=== PATIENT | female | born 1980 | race Two or more races ===

== ENCOUNTER 2018-03-18 22:27 | Emergency (ER) | payer MEDICAID ==
[~2018-03-18] VITALS: Ht 167.6 cm; Wt 66.8 kg
[~2018-03-18 22:27] MED LIST: DOCU-28 PO; PHEN-873 PO
[2018-03-18] MEDS ORDERED: morphine 4 MG/ML inj SYRINge IV ONE (22:50)
[2018-03-18] MEDS ORDERED: ondansetron/PF 4mg/2ml inj IV ONE (22:50)
[2018-03-18 23:04] LABS: BASOPHILS # (AUTO) 0.1 X10'3 (0-0.2); BASOPHILS % (AUTO) 0.8 % (0-1); EOSINOPHILS # (AUTO) 0.2 X10'3 (0-0.9); EOSINOPHILS % (AUTO) 1.9 % (0-6); HEMOGLOBIN 13.2 g/dl (12.0-16.0); LYMPHOCYTES # (AUTO) 5.4 X10'3 (1.1-4.8); LYMPHOCYTES % (AUTO) 44.6 % (21-51); MEAN CORPUSCULAR HEMOGLOBIN 26.7 PG (27.0-31.0); MEAN CORPUSCULAR HGB CONC 33.8 % (33.0-36.5); MEAN CORPUSCULAR VOLUME 78.8 FL (78-98); MEAN PLATELET VOLUME 7.8 FL (7.4-10.4); MONOCYTES # (AUTO) 1.3 X10'3 (0-0.9); NEUTROPHILS % (AUTO) 41.7 % (42-75); PLATELET COUNT 265 X10'3 (140-440); RED BLOOD COUNT 4.95 X10'6 (4.20-5.60); RED CELL DISTRIBUTION WIDTH 13.1 % (11.5-14.5); WHITE BLOOD COUNT 12.1 X10'3 (4.5-11.0)
[2018-03-18 23:06] LABS: INR 1.1 INR; PARTIAL THROMBOPLASTIN TIME 27 SECONDS (22-32); PROTHROMBIN TIME 10.9 SECONDS (9.0-12.0)
[2018-03-18 23:11] LABS: ALANINE AMINOTRANSFERASE 43 U/L (12-78); ALBUMIN/GLOBULIN RATIO 0.7 (1.1-1.5); ALKALINE PHOSPHATASE 101 IU/L (46-116); ANION GAP 10 (8-16); ASPARTATE AMINO TRANSFERASE 41 U/L (10-37); BILIRUBIN,TOTAL 0.4 MG/DL (0.1-1.0); BLOOD UREA NITROGEN 13 MG/DL (7-18); BUN/CREATININE RATIO 21.7 (6.6-38.0); CALCIUM 9.8 MG/DL (8.5-10.1); CHLORIDE 106 MMOL/L (99-107); GLUCOSE 116 MG/DL (70-104); SODIUM 138 MMOL/L (135-145); TOTAL PROTEIN 7.2 G/DL (6.4-8.2); eGFR > 90 ML/MIN
[2018-03-18] MEDS ORDERED: potassium Cl 20 mEq SR tablet PO STA (23:56)
[2018-03-19] MEDS ORDERED: LORazepam 2 mg/ml vial IV ONE
[2018-03-19] MEDS ORDERED: POTA20TA19 PO (02:09)
[2018-03-19] MEDS ORDERED: LORA1TAB PO (02:09)
[2018-03-19 02:21] VITALS: BP 134/88
== END 2018-03-19 02:22 | disposition home or self-care (01) ==
LOC: ER 22:27
DX: F41.9 Anxiety disorder, unspecified (principal); E87.6 Hypokalemia; R07.2 Precordial pain; R11.2 Nausea with vomiting, unspecified; R19.7 Diarrhea, unspecified; J45.909 Unspecified asthma, uncomplicated; Z88.6 Allergy status to analgesic agent; Z79.899 Other long term (current) drug therapy
CPT/HCPCS: 36415; 71045; 80053; 83880; 84484; 85025; 85610; 85730; 93005; 96374; 96375; 99285; J2060; J2270; J2405; J7030

== ENCOUNTER 2018-04-15 10:52 | Emergency (ER) | payer MEDICAID ==
[~2018-04-15] VITALS: Ht 565.3 cm; Wt 68.2 kg
[~2018-04-15 10:52] MED LIST changes: +LORA1TAB PO; +POTA20TA19 PO
[2018-04-15] MEDS ORDERED: normal saline 1000ML IV soln IVB ONE (11:50)
[2018-04-15] MEDS ORDERED: methylPREDNISolone sod succ 125mg/2ml vial IV ONE (11:50)
[2018-04-15] MEDS ORDERED: ipratropium/albuterol 3ml nebule NEB ONE (11:50)
[2018-04-15 12:12] VITALS: BP 135/73
[2018-04-15 12:39] LABS: BASOPHILS % (AUTO) 0.2 % (0-1); EOSINOPHILS % (AUTO) 0.3 % (0-6); HEMATOCRIT 37.3 % (35.0-45.0); HEMOGLOBIN 12.7 g/dl (12.0-16.0); LYMPHOCYTES # (AUTO) 4.8 X10'3 (1.1-4.8); LYMPHOCYTES % (AUTO) 44.6 % (21-51); MEAN CORPUSCULAR VOLUME 79.5 FL (78-98); MEAN PLATELET VOLUME 8.1 FL (7.4-10.4); MONOCYTES % (AUTO) 9.8 % (2-12); NEUTROPHILS # (AUTO) 4.7 X10'3 (1.8-7.7); NEUTROPHILS % (AUTO) 45.1 % (42-75); PLATELET COUNT 225 X10'3 (140-440); RED CELL DISTRIBUTION WIDTH 11.7 % (11.5-14.5); WHITE BLOOD COUNT 10.5 X10'3 (4.5-11.0)
[2018-04-15 12:50] LABS: D-DIMER 0.36 MG/L FEU (0-0.50)
[2018-04-15 12:54] LABS: ALANINE AMINOTRANSFERASE 40 U/L (12-78); ALBUMIN 2.9 G/DL (3.4-5.0); ALBUMIN/GLOBULIN RATIO 0.8 (1.1-1.5); ALKALINE PHOSPHATASE 82 IU/L (46-116); ANION GAP 7 (8-16); ASPARTATE AMINO TRANSFERASE 23 U/L (10-37); BILIRUBIN,TOTAL 0.4 MG/DL (0.1-1.0); BLOOD UREA NITROGEN 10 MG/DL (7-18); BUN/CREATININE RATIO 19.6 (6.6-38.0); CALCIUM 9.8 MG/DL (8.5-10.1); CHLORIDE 105 MMOL/L (99-107); CREATININE 0.51 MG/DL (0.40-0.90); GLUCOSE 78 MG/DL (70-104); SODIUM 137 MMOL/L (135-145); TOTAL CARBON DIOXIDE 24.6 MMOL/L (24-32); TOTAL PROTEIN 6.7 G/DL (6.4-8.2); eGFR > 90 ML/MIN
== END 2018-04-15 13:26 | disposition home or self-care (01) ==
LOC: ER 10:53
DX: J45.901 Unspecified asthma with (acute) exacerbation (principal); R00.0 Tachycardia, unspecified; Z79.899 Other long term (current) drug therapy; Z88.6 Allergy status to analgesic agent; Z91.040 Latex allergy status
CPT/HCPCS: 36415; 71045; 80053; 84484; 85025; 85379; 93005; 94640; 94760; 96374; 99285; J2930; J7030

== ENCOUNTER 2021-05-23 07:12 | Emergency (ER) | payer MEDICAID ==
[~2021-05-23] VITALS: Ht 167.6 cm; Wt 90.2 kg
[~2021-05-23 07:12] MED LIST changes: +CYCL-1 PO; -LORA1TAB PO; +PHEN-786 PO; -PHEN-873 PO; -POTA20TA19 PO
[2021-05-23 08:04] VITALS: BP 177/120
== END 2021-05-23 12:00 | disposition left against medical advice (07) ==
LOC: ER 07:13
DX: M79.601 Pain in right arm (principal); N64.4 Mastodynia; Z53.21 Procedure and treatment not carried out due to patient leaving prior to being seen by health care provider; W11.XXXA Fall on and from ladder, initial encounter; Y93.89 Activity, other specified; Y92.89 Other specified places as the place of occurrence of the external cause; Y99.8 Other external cause status
CPT/HCPCS: 71100

== ENCOUNTER 2022-10-22 13:12 | Emergency (ER) | payer MEDICAID ==
[~2022-10-22] VITALS: Ht 167.6 cm; Wt 90.9 kg
[2022-10-22 13:16] VITALS: BP 162/99
== END 2022-10-22 20:02 | disposition left against medical advice (07) ==
LOC: ER 13:13
DX: J45.901 Unspecified asthma with (acute) exacerbation (principal); Z53.21 Procedure and treatment not carried out due to patient leaving prior to being seen by health care provider